=== PATIENT | female | born 1950 | race Caucasian/White ===

== ENCOUNTER 2019-07-22 17:33 | Inpatient (IN) | payer MEDICARE, OTHER ==
[~2019-07-22] VITALS: Ht 175.3 cm; Wt 72.7 kg
[~2019-07-22 17:33] MED LIST: ACET325 PO; DILT180ER PO; DILTIAZEM 24HR240 M1 PO; ELIQUIS5 MG PO; FAMO40; FURO20 PO; IRBE150 PO; Klor-Con 1010 MEQ PO; NAPR220 PO; NEBI5; PROBIOTIC1 EAC1 PO; VIT1CAPS12
--- NOTE | 2019-07-22 17:55 | NUR ---
PATIENT ARRIVED TO PCU ROOM [address] FUNG'S OFFICE, PATIENT AMBULATED IN STREET CLOTHES WITH OVERNIGHT BAG ESCORTED BY ADMINISTRATION RN PRIOR AUTHORIZATION, PATIENT SHOWN TO ROOM, ASKED TO CHANGE INTO HOSPITAL GOWN, PIV 2OG ON NATALIA STARTED, ADMISSION PROCESS STARTED, CODE CART IN ROOM FOR POSSIBLE CARDIOVERION, VITAL SIGNS SHOW ELEVATED BLOOD PRESSURE, PATIENT DENIES PAIN, AFEBRILE, ON RA, O2 93 %, PATIENT IS ALERT AND ORIENTED, LUNG SOUNDS CLEAR, HEART SOUNDS IRREGULAR, PATIENT ABLE TO USE BATHROOM TO VOID WITH SBA, BOWEL TONES HYPOACTIVE, DR. FUNG CALLED AND UPDATED ON PATIENT STATUS AND CONDITION, WILL OBSERVE PATIENT AND HOLD OFF ON CARDIOVERSION, PATIENT WAS ORIENTED TO ROOM AND ENVIRONMENT, PATIENT NPO AT THIS TIME, CALL LIGHT GIVEN AND EXPLAINED, PATIENT VERBALIZED UNDERSTANDING, CALL LIGHT IN REACH, WILL CONTINUE TO MONITOR.
--- NOTE | 2019-07-22 18:16 | NUR ---
NOTIFIED PT DIRECT ADMIT FROM ADMITTING. EKG COMPLETED. LABS PENDING. MD FUNG NOTIFIED OF CURRENT PT STATUS.
[2019-07-22 18:29] LABS: BASOPHILS ABSOLUTE AUTO 0.05 K/mm3 (0.00-0.23); BASOPHILS PERCENT AUTO 1 % (0-2); EOSINOPHILS PERCENT AUTO 3 % (0-6); Hematocrit 43.7 % (33.0-51.0); Hemoglobin 14.5 g/dL (11.5-16.0); IMMATURE GRAN ABSOLUTE AUTO 0.01 K/mm3 (0.00-0.10); IMMATURE GRAN PERCENT AUTO 0 % (0-1); LYMPHOCYTES ABSOLUTE AUTO 2.43 K/mm3 (0.84-5.20); LYMPHOCYTES PERCENT AUTO 34 % (21-46); MONOCYTES PERCENT AUTO 11 % (4-13); Mean Corpuscular HGB 32.6 pg (26.0-34.0); Mean Corpuscular HGB Conc 33.2 g/dL (31.5-36.5); Mean Corpuscular Volume 98 fL (80-100); Mean Platelet Volume 9.1 fL (9.1-12.4); NEUTROPHILS ABSOLUTE AUTO 3.75 K/mm3 (1.96-9.15); NEUTROPHILS PERCENT AUTO 52 % (41-73); Platelet Count 326 K/mm3 (150-400); RDW Standard Deviation 46.4 fL (35.1-46.3); Red Blood Cell Count 4.45 M/mm3 (3.80-5.20); White Blood Cell Count 7.24 K/mm3 (4.00-11.30)
[2019-07-22 18:35] LABS: Anion Gap 6 mmol/L (6-16); Blood Urea Nitrogen 17 mg/dL (8-24); Bun/Creatinine Ratio 29.2 (12.0-20.0); CO2, Blood 28 mmol/L (21-32); Chloride, Blood 102 mmol/L (98-108); Creatinine, Blood 0.58 mg/dL (0.40-1.00); Glomerular Filtration Rate >60 (60-); Glucose, Blood 103 mg/dL (70-99); Magnesium, Blood 2.1 mg/dL (1.6-2.4); Potassium, Blood 3.7 mmol/L (3.5-5.5); Sodium, Blood 136 mmol/L (136-145)
--- NOTE | 2019-07-22 20:30 | NUR ---
PROCEDURE: CARDIOVERSION PT IS CURRENTLY AOX4 AND RELAXED LYING IN BED. INITIAL VITAL SIGNS T:97.6 P: 108 R: 16 BP: 167/101 O2: 97% RA. CURRENT CARDIAC RHYTHM IS ATRIAL FIBRILLATION WITH A RATE IN THE 110s. CRASH CART IN ROOM AND PATIENT CONNECTED TO DEFIBRILLATION PADS. RSI KIT IN ROOM, NASAL CANNULA PLACED AND PATIENT CONNECT TO DINAMAP FOR VITAL SIGN MONITORING. PROCEDURE CONSENT SIGNED WITH PHYSICIAN. 1944: TIME OUT PERFORMED AND PROCEDURE START 1944: 2 MG VERSED AND 50 MCG FENTANYL GIVEN 1950: BP- 167/101 P- 106 1957: 1 MG VERSED AND 25 MCG FENTANYL GIVEN 2000: BP- 151/81 P- 106 2004: 1 MG VERSED GIVEN 2005: SYNCRONIZED CARDIOVERSION PERFORMED, ONE SHOCK ADMINISTERED WITH 100J 2005: BP- 176/111 P- 91, PATIENT IN SINUS RHYTHM PER TELEMETRY 2007: PT CONTINUES TO REST WITH EYES CLOSED. BP- 171/109 P-92 2010: BP- 175/82 P-93, REMAINS IN SINUS RHYTHM, STARTING TO WAKE. 2012: PT FULLY AWAKE AND ORIENTED, REPORTS THAT SHE DOES NOT REMEMBER THE CARDIOVERSION. 2012: PROCEDURE COMPLETED.
--- NOTE | 2019-07-23 01:25 | NUR ---
DYSPNEIC EPISODE PT REPORTS THAT SHE WOKE WITH SOME SLIGHT DYSPNEA AND FELT THAT SHE COULD NOT GET A FULL BREATH. VITAL SIGNS STABLE WITH BP OF 144/82, HR OF 69, RESPIRATIONS OF 16 AND O2 SATS OF 94% ON RA. PT SET UP WITH HOB >30 DEGREES. LUNG SOUNDS REMAIN CLEAR. NO CHANGES TO EKG. PT REPORTS THAT DYSPNEA DISSIPATED WITHIN TWO MINUTES OF ONSET. WILL CONTINUE TO MONITOR CLOSELY.
[2019-07-23 03:29] LABS: BASOPHILS ABSOLUTE AUTO 0.04 K/mm3 (0.00-0.23); BASOPHILS PERCENT AUTO 1 % (0-2); EOSINOPHILS ABSOLUTE AUTO 0.32 K/mm3 (0.00-0.68); EOSINOPHILS PERCENT AUTO 5 % (0-6); IMMATURE GRAN ABSOLUTE AUTO 0.02 K/mm3 (0.00-0.10); IMMATURE GRAN PERCENT AUTO 0 % (0-1); LYMPHOCYTES ABSOLUTE AUTO 1.82 K/mm3 (0.84-5.20); LYMPHOCYTES PERCENT AUTO 26 % (21-46); MONOCYTES ABSOLUTE AUTO 0.91 K/mm3 (0.16-1.47); MONOCYTES PERCENT AUTO 13 % (4-13); Mean Corpuscular HGB 32.7 pg (26.0-34.0); Mean Corpuscular HGB Conc 32.5 g/dL (31.5-36.5); Mean Platelet Volume 8.9 fL (9.1-12.4); NEUTROPHILS ABSOLUTE AUTO 3.79 K/mm3 (1.96-9.15); NEUTROPHILS PERCENT AUTO 55 % (41-73); Platelet Count 283 K/mm3 (150-400); RDW Coefficient Variation 13.2 % (11.7-14.2); RDW Standard Deviation 49.5 fL (35.1-46.3); Red Blood Cell Count 3.97 M/mm3 (3.80-5.20)
[2019-07-23 03:32] LABS: Mean Corpuscular Volume 101 fL (80-100)
[2019-07-23 03:44] LABS: Anion Gap 5 mmol/L (6-16); Blood Urea Nitrogen 18 mg/dL (8-24); Bun/Creatinine Ratio 42.9 (12.0-20.0); CO2, Blood 28 mmol/L (21-32); Calcium, Blood 8.5 mg/dL (8.5-10.1); Chloride, Blood 108 mmol/L (98-108); Creatinine, Blood 0.42 mg/dL (0.40-1.00); Glomerular Filtration Rate >60 (60-); Glucose, Blood 94 mg/dL (70-99); Magnesium, Blood 2.1 mg/dL (1.6-2.4); Potassium, Blood 4.2 mmol/L (3.5-5.5); Sodium, Blood 141 mmol/L (136-145)
--- NOTE | 2019-07-23 06:25 | NUR ---
SHIFT SUMMARY PT HAS REMAINED AOX4 THROUGHOUT SHIFT. PLEASANT AND COOPERATIVE WITH CARE. BP ELEVATED THROUGHOUT START OF SHIFT, BUT HAS DECREASED THROUGHOUT THE NIGHT, SEE VITAL SIGNS CHARTING. ALL OTHER VSS. CARDIAC RHYTHM HAS REMAINED IN NORMAL SINUS SINCE CARDIOVERSION WITH A RATE IN THE 60s. PT HAS DENIED ANY FURTHER EPISODES OF DYSPNEA. CONTINUES TO AMBULATE WITH STANDBY ASSIST TO RESTROOM WITHOUT DIFFICULTY. PER PHYSICIAN INSTRUCTIONS, EKG TO BE OBTAINED 30-45 MINUTES AFTER EACH DOSE OF SOTALOL; IF QTC >500, DR FUNG TO BE CONTACTED. NO OTHER CHANGES NOTED FROM INITIAL ASSESSMENT. WILL CONTINUE TO MONITOR AND REPORT TO ONCOMING SHIFT RN. BED IN LOW POSITION, CALL LIGHT IN REACH.
--- NOTE | 2019-07-23 08:17 | NUR ---
DR FUNG ROUNDS DR FUNG ROUNDED. PLAN TO RETURN AROUND 1000 AFTER SOTALOL HAS BEEN GIVEN AND EKG DONE. WILL CONT TO MONITOR PT.
--- NOTE | 2019-07-23 08:50 | NUR ---
SOTALOL DOSE 0900 SOTALOL DOSE GIVEN DIRECTED PER EMR AT 0845. BOOGIE, PCT NOTIFIED OF NEED FOR EKG STAT AT [address] KENTON JEFFERS.
--- NOTE | 2019-07-23 10:49 | NUR ---
REPEAT EKG REPEAT EKG DONE PER DR FUNG ORDERS D/T ARTIFACT PRESENT ON EKG DONE 30 MIN POST SOTALOL DOSE. EKG SHOWN TO DR FUNG AT BEDSIDE. PER DR FUNG, PLAN TO REDUCE PT'S SOTALOL DOSE TO 40MG. WILL CONT TO MONITOR PT.
--- NOTE | 2019-07-23 18:04 | NUR ---
SHIFT SUMMARY PT INDEPENDENT IN ROOM. OOB TO CHAIR AT THIS TIME, WATCHING TV. PT VERY ACTIVE TYPICALLY AND EXPRESSED FEELING "STIR CRAZY". PT PLEASANT AND COOPERATIVE WITH CARE. PT DENIES ANY PAIN OR DISCOMFORT. PT ALERT AND ORIENTED TO ALL. VSS T/O SHIFT, SEE CHART. SOTALOL DOSE ADJUSTED DOWN AFTER EKG THIS AM SHOWED QTc PROLONGATION. PER DR FUNG ORDER TO CONTINUE WITH EKG 30-45MIN POST SOTALOL ADMINISTRATION AND TO CALL IF QTc GREATER THAN 500. PT HAS DENIED ANY CHEST PAIN/PRESSURE/PALPITATIONS T/O SHIFT. PT AWARE OF PLAN. PT WITHOUT ANY ACUTE EVENTS T/O SHIFT. WILL CONT TO MONITOR PT.
[2019-07-24 04:42] LABS: Anion Gap 5 mmol/L (6-16); Blood Urea Nitrogen 17 mg/dL (8-24); CO2, Blood 29 mmol/L (21-32); Calcium, Blood 8.6 mg/dL (8.5-10.1); Chloride, Blood 107 mmol/L (98-108); Creatinine, Blood 0.42 mg/dL (0.40-1.00); Glomerular Filtration Rate >60 (60-); Glucose, Blood 90 mg/dL (70-99); Magnesium, Blood 2.1 mg/dL (1.6-2.4); Potassium, Blood 4.1 mmol/L (3.5-5.5); Sodium, Blood 141 mmol/L (136-145)
--- NOTE | 2019-07-24 06:04 | NUR ---
SHIFT SUMMARY PT HAS REMAINED AOX4 THROUGHOUT SHIFT. VSS. PLEASANT AND COOPERATIVE WITH CARE. PT CONTINUES TO AMBULATE INDEPENDENTLY IN THE ROOM WITHOUT DIFFICULTY. CARDIAC RHYTHM HAS REMAINED IN NORMAL SINUS THROUGHOUT THE NIGHT WITH A RATE IN THE 70s. DENIES CP AND DYSPNEA. NO OTHER CHANGES NOTED FROM INITIAL ASSESSMENT. WILL CONTINUE TO MONITOR AND REPORT TO ONCOMING SHIFT RN. BED IN LOW POSITION, CALL LIGHT IN REACH.
--- NOTE | 2019-07-24 07:35 | NUR ---
ASSUMED CARE: PT SITTING UPRIGHT IN CHAIR AT THIS TIME. NO ACUTE NEEDS OR CONCERNS NOTED
--- NOTE | 2019-07-24 07:42 | NUR ---
ASSUMED CARE OF PT. PT SITTING UP IN BED IN NO ACUTE DISTRESS. DENIES ANY NEEDS AT THIS TIME. CALL LIGHT AND POSSESSIONS IN REACH.
[2019-07-24 09:18] LABS: CHOL/HDL RATIO 2.4; Cholesterol 207 mg/dL (50-200); HDL Cholesterol 88 mg/dL (>39); LDL/HDL RATIO 1.2; Low Density Lipoprotein Chol 107 mg/dL (0-110); Triglycerides 62 mg/dL (30-160); Very Low Density Lipoprot Chol 12 mg/dL (6-32)
--- NOTE | 2019-07-24 14:00 | NUR ---
PT C/O LOOSE STOOL. STATES SHE NORMALLY IS CONSTIPATED. NOTIFIED CHARGE NURSE OF PT CONCERNS. WILL CONTINUE TO MONITOR.
--- NOTE | 2019-07-24 16:00 | NUR ---
REASSESSED PT FOR PREVIOUS C/O DIARRHEA. STATES IT HAS IMPROVED AT THIS TIME AND THINKS IT WAS R/T SOMETHING SHE HAD PREVIOUSLY EATEN. NO FURTHER C/O DIARRHEA AT THIS TIME.
--- NOTE | 2019-07-24 18:37 | NUR ---
PT SITTING IN CHAIR AT THIS TIME IN NO ACUTE DISTRESS. WAS MONITORED EVERY 1-2 HOURS WITH NEEDS MET. DENIES ANY NEEDS AT THIS TIME. CALL LIGHT AND POSSESSIONS IN REACH.
--- NOTE | 2019-07-24 21:53 | NUR ---
sitting up in chair when doing bsr at to start shift, flushed IV no s/sx infection or infiltration, rm air, medicated as prescribed and performed ekg with no evidence of extended QT intervals, requested PMT to continue to monitor and report any change, pt denied any symptoms and self transfered to bed, with the stated desire to sleep, call light placed in reach as well as water and other possessions, bed in low position, will continue to montitor and treat
[2019-07-25 04:31] LABS: Anion Gap 6 mmol/L (6-16); Blood Urea Nitrogen 16 mg/dL (8-24); Bun/Creatinine Ratio 33.9 (12.0-20.0); CO2, Blood 30 mmol/L (21-32); Calcium, Blood 8.7 mg/dL (8.5-10.1); Chloride, Blood 106 mmol/L (98-108); Creatinine, Blood 0.47 mg/dL (0.40-1.00); Glomerular Filtration Rate >60 (60-); Glucose, Blood 89 mg/dL (70-99); Magnesium, Blood 2.1 mg/dL (1.6-2.4); Potassium, Blood 4.1 mmol/L (3.5-5.5); Sodium, Blood 142 mmol/L (136-145)
--- NOTE | 2019-07-25 06:13 | NUR ---
a+o, call light in reach, will continue to monitor and treat until share bsr with staff and pt, looking forward to going home, QRS within parameters set by specialist
[2019-07-25] MEDS ORDERED: DILT180 PO (11:22)
[2019-07-25] MEDS ORDERED: SOTALOL PO (11:26)
== END 2019-07-25 11:56 | disposition home or self-care (01) | DRG 309 ==
LOC: PCU 17:33
PROVIDERS: ADMIT Internal Medicine Cardiovascular Disease
PROC: 5A2204Z Restoration of Cardiac Rhythm, Single (ICD-10-PCS; principal; 2019-07-22)
DX: I48.92 Unspecified atrial flutter (principal); Q21.1 Atrial septal defect; I48.91 Unspecified atrial fibrillation; Z87.891 Personal history of nicotine dependence; M41.9 Scoliosis, unspecified; E87.6 Hypokalemia; I27.20 Pulmonary hypertension, unspecified
CPT/HCPCS: 36415; 71045; 80048; 80061; 83735; 85025; 93005; 93010; 99152; 99153; J2250; J3010; J7030

== ENCOUNTER 2020-11-01 07:52 | Day surgery (SDC) | payer MEDICARE, OTHER ==
[~2020-11-01] VITALS: Ht 175.3 cm; Wt 76.7 kg
[~2020-11-01 07:52] MED LIST changes: +DILT180 PO; +SOTALOL PO; -VIT1CAPS12; +VIT1CAPS12 PO
[2020-11-01] MEDS ORDERED: PROBIOTIC1 EA13 PO (08:23)
[2020-11-01] MEDS ORDERED: CLARITIN5 MG PO (08:24)
--- NOTE | 2020-11-01 08:37 | NUR ---
INTO [facility] ADMISSION STARTED VSS. History, Chart, Medications and Allergies reviewed before start of procedure. History, Chart, Medications and Allergies reviewed before start of procedure.
--- NOTE | 2020-11-01 12:46 | NUR ---
Patient up to Ambulate independently. Gait steady. Discharge instructions reviewed with patient. Patient verbalizes understanding. Copy given to patient to take home. Patient States Post-Procedure ride home has been arranged. Discharged via wheelchair to private car for ride home.
== END 2020-11-01 22:52 | disposition home or self-care (01) ==
LOC: ORSCMMR 07:52 → ORD 09:30 → ORSCMMR 09:30
PROVIDERS: Surgery
PROC: 0JB80ZZ Excision of Abdomen Subcutaneous Tissue and Fascia, Open Approach (ICD-10-PCS; principal; 2020-11-01 09:30)
DX: D17.79 Benign lipomatous neoplasm of other sites (principal); I10 Essential (primary) hypertension; I48.91 Unspecified atrial fibrillation; Z79.01 Long term (current) use of anticoagulants; Z79.899 Other long term (current) drug therapy; Z87.891 Personal history of nicotine dependence
CPT/HCPCS: 88304; J0690; J2704; J3010; J7120

== ENCOUNTER 2021-03-19 07:21 | Day surgery (SDC) | payer MEDICARE, OTHER ==
[~2021-03-19 07:21] MED LIST changes: +CLARITIN5 MG PO; +LOSA25 PO; +PROBIOTIC1 EA13 PO
[2021-03-19] MEDS ORDERED: ACET325 PO (08:36)
--- NOTE | 2021-03-19 10:00 | NUR ---
DISCHARGE PT REMAINED A&OX3 AND DENIED ANY QUESTIONS AT THIS TIME. POST EGK PERFOMED. IV DC'D WITH CANULA IN-TACT. PT ABLE TO DRESS SELF INDEPENDANTLY. DISCHARGE PAPERWORK GONE OVER WITH PT. PT VERBALLY STATED THE UNDERSTANDING OF THE DISCHARGE EDUCATION AND DENIED ANY QUESTIONS AT THIS TIME. PT WHEELD OUT BY THIS NURSE.
== END 2021-03-19 23:00 | disposition home or self-care (01) ==
LOC: MHTC 07:21
DX: I48.0 Paroxysmal atrial fibrillation (principal); I10 Essential (primary) hypertension; Z88.8 Allergy status to other drugs, medicaments and biological substances; Z91.040 Latex allergy status
CPT/HCPCS: 92960; 93005; 93010; J2704; J7030